=== PATIENT | female | born 1975 | race Caucasian/White ===

== ENCOUNTER 2017-02-14 20:27 | Emergency (ER) | payer SELFPAY ==
[2017-02-14 20:38] VITALS: RESP 16; TEMP 97.7
--- NOTE | 2017-02-14 20:38 | EDPHY ---
H & P Time Seen by Provider: 02/14/17 20:35 HPI/ROS: CHIEF COMPLAINT: Right ankle injury HISTORY OF PRESENT ILLNESS: 41-year-old female presents to the emergency department by ambulance with an isolated injury to the right ankle. The patient was hiking and twisted her right ankle. She complains of isolated pain to the right ankle. She is unable to weight bear without pain. Denies any other trauma or injury. She did not hit her head or lose consciousness. Denies pain in her right foot, right knee or hip. Denies neck or back pain. REVIEW OF SYSTEMS: Constitutional: No fever, no chills. Eyes: No double or blurry vision. ENT: No sore throat. Respiratory: No cough, no shortness of breath. Cardiac: No chest pain. Gastrointestinal: No abdominal pain, vomiting or diarrhea. Genitourinary: No dysuria. Musculoskeletal: No neck or back pain. Skin: No rashes. Neurological: No headache. (Shirley Orellana) Past Medical/Surgical History: Carotid artery dissection, CVA (Shirley Orellana) Social History: Single and lives in [place] (Shirley Orellana) Physical Exam: General Appearance: Alert, no distress. Eyes: Pupils equal and round. Extraocular motions are all intact. ENT: Mouth: Mucous membranes moist. Respiratory: No wheezing, rhonchi, or rales, lungs are clear to auscultation. Cardiovascular: Regular rate and rhythm. Gastrointestinal: Abdomen is soft and nontender, no masses, no rebound or guarding, bowel sounds normal. Neurological: Alert and oriented x 3, cranial nerves II through XII grossly intact Skin: Warm and dry, no rashes. Musculoskeletal: Nontender to palpate along the cervical, thoracic or lumbar spine. Neck is supple. Extremities: Swelling noted diffusely to the right ankle. She has pain with palpation especially to the medial lateral aspect of the ankle. Limited dorsi and plantar flexion secondary to pain. No abrasion or puncture wound. No ecchymosis. Normal sensation to light touch with normal 2 point discrimination. Strong dorsalis pedis pulse on the dorsal aspect of the right foot. Strong posterior tibial pulse palpated. Psychiatric: Patient is oriented X 3, there is no agitation. (Shirley Orellana M) Constitutional: Initial Vital Signs Temperature (C) 36.5 C 02/14/17 20:37 Heart Rate 62 02/14/17 20:37 Respiratory Rate 16 02/14/17 20:37 Blood Pressure 108/72 02/14/17 20:37 O2 Sat (%) 100 02/14/17 20:37 O2 Delivery Mode Room Air Allergies/Adverse Reactions: No Known Allergies Allergy (Unverified 02/14/17 20:39) Home Medications: Medication Instructions Recorded Herbals/Supplements -Info Only 02/14/17 VITAMIN D 02/14/17 Medical Decision Making - Diagnostics Imaging: I viewed and interpreted images myself ED Course/Re-evaluation: 41-year-old female presents after she fell hiking. X-rays reveal avulsion fracture both to the medial lateral malleolus. She was placed in a Ng boot and given crutches and will be nonweightbearing until follow-up with orthopedic physician this week. (Shirley Orellana) I did not see this patient while she was in the emergency department. However her care was discussed with the PA while the patient was in the department. I agree with treatment plan and management (Eusebio Thompson) Differential Diagnosis: Including but not limited to fracture, dislocation, contusion, sprain (Shirley Orellana) Departure - Departure Disposition: Home, Routine, Self-Care Clinical Impression: Closed right ankle fracture Qualifiers: Encounter type: initial encounter Qualified Code(s): S82.891A - Other fracture of right lower leg, initial encounter for closed fracture Condition: Good Instructions: Ankle Fracture (ED) Additional Instructions: Nonweightbearing, use crutches. Ng boot for support. Follow up with orthopedic surgeon next week. Ibuprofen 600 mg every 8 hours as needed for pain. Referrals: Amelia Rubio MD [Medical Doctor] - 2-3 days without fail (Orthopedic surgeon on-call)
[2017-02-14 22:10] VITALS: BP 113/73; PULSE 60; O2SAT 99
== END 2017-02-14 22:09 | disposition home or self-care (01) ==
LOC: EDUNIT#
DX: S82.891A Other fracture of right lower leg, initial encounter for closed fracture (principal); Z86.73 Personal history of transient ischemic attack (TIA), and cerebral infarction without residual deficits; X58.XXXA Exposure to other specified factors, initial encounter; Y99.8 Other external cause status; Y93.01 Activity, walking, marching and hiking
CPT/HCPCS: L4386

== ENCOUNTER → 2018-11-04 | Outpatient (CLI) | payer OTHER | LOC: BMCIMAGING 07:46 | PROVIDERS: ATTEND Family Medicine | DX: Z12.31 Encounter for screening mammogram for malignant neoplasm of breast (principal) ==